=== PATIENT | female | born 1965 | race Caucasian/White ===

== ENCOUNTER 2016-10-29 13:07 | Emergency (ER) | payer BC ==
[2016-10-29 13:40] VITALS: TEMP 98.8; BMI 21.2
[2016-10-29 14:18] LABS: PH,URINE 6.5 (4.5-8); URINE APPEARANCE Clear; URINE BILIRUBIN Negative (NEGATIVE); URINE GLUCOSE (UA) Negative (NEGATIVE); URINE KETONE Negative (NEGATIVE); URINE LEUK ESTERASE Negative (NEGATIVE); URINE NITRITE Negative (NEGATIVE); URINE PROTEIN Negative (NEGATIVE); URINE UROBILINOGEN 0.2 (0.2-1.0)
[2016-10-29 14:20] LABS: URINE BACTERIA FEW /hpf (NEGATIVE); URINE BLOOD Trace-lysed (NEGATIVE); URINE COLOR YELLOW; URINE RBC 0-3 /hpf (0-3); URINE WBC 0-3 (3-5)
--- NOTE | 2016-10-29 14:21 | PDOC ---
History of Present Illness - General Chief Complaint: Pain Stated Complaint: ABDOMINAL PAIN Time Seen by Provider: 10/29/16 13:09 - History of Present Illness Initial Comments: 10/29/16 18:14 Chief complaint: Abdominal pain History of present illness: Mid abdominal pain for several days, appears to be worse today. Mild nausea, anorexia, no vomiting or diarrhea. Normal bowel movement today Review of systems: No recent hematemesis, melena, bloody stool. No dysuria or other urinary tract symptoms. No vaginal bleeding or discharge. No fever/chills , URI symptoms, sore throat, cough, chest pain, shortness of breath, visual or focal neurologic symptoms. No lightheadedness or dizziness. She does admit chronic anxiety which has worsened recently. Past medical history: Reviewed and noncontributory to this illness Social/family history reviewed and noncontributory Physical exam: Alert and oriented well-developed well-nourished no acute distress cheerful and cooperative. The patient does not appear to be ill or in any significant pain Afebrile, vital signs normal No pallor or icterus. PERRLA, ENT clear, but mucous membranes are present Neck supple without bruit mass or nodes Lungs clear with full breath sounds bilaterally CV regular without murmur rub or gallop Abdomen nondistended. Bowel sounds are normal. There is tenderness to deep palpation in the periumbilical area, no guarding or rebound. No CVAT Extremities no CCE Skin clear, no rash, adequate turgor Impression: Suggestive of irritable bowel and/or anxiety reaction. Plan: Urinalysis clear. test negative. CBC and chemistries without significant abnormalities. CAT scan pending. Past History - Past Medical History Allergies/Adverse Reactions: Allergies Allergy/AdvReac Type Severity Reaction Status Date / Time moxifloxacin HCl AdvReac Intermediate stomach Verified 10/29/16 13:09 [From Avelox] upset Home Medications: Ambulatory Orders Alprazolam [Xanax] 0.5 tab PO PRN PRN 10/29/16 Ranitidine HCl [Zantac] 150 mg PO BID 10/29/16 Sucralfate [Carafate] 1 gm PO TID 10/29/16 GI Disorders: Yes (GERD) Psychiatric Problems: Yes (ANXIETY) Other medical history: HERNIATED DISC NECK AND BACK - Psycho/Social/Smoking Cessation Hx Anxiety: Yes Suicidal Ideation: No Smoking History: Never smoked Hx Alcohol Use: No Drug/Substance Use Hx: No Substance Use Type: None *Physical Exam - Vital Signs Last Vital Signs Temp Pulse Resp BP Pulse Ox 98.8 F 83 18 138/98 100 10/29/16 13:08 10/29/16 13:08 10/29/16 13:08 10/29/16 13:08 10/29/16 13:08 ED Treatment Course - LABORATORY CBC & Chemistry Diagram: 10/29/16 14:35 10/29/16 14:35 *DC/Admit/Observation/Transfer - Discharge Dispostion Condition at time of disposition: Stable
[2016-10-29 15:13] LABS: ALBUMIN 4.5 g/dl (3.5-5.0); ALK PHOS 62 U/L (32-92); ANION GAP 8 (8-16); BASOPHIL 1.8 % (0-2.0); CALCIUM 9.9 mg/dl (8.4-10.2); CO2 27 mmol/L (22-28); CREATININE 0.5 mg/dl (0.6-1.3); EOSINOPHIL 0.6 % (0-4.5); GLUCOSE,RANDOM 99 mg/dl (74-106); MCH 30.3 pg (25.7-33.7); MCHC 32.9 g/dl (32.0-36.0); MEAN CELL VOLUME 92.2 fl (80-96); MEAN PLT VOLUME 8.2 fl (7.5-11.1); PLATELET COUNT 507 K/MM3 (134-434); RDW 12.5 % (11.6-15.6); SGOT/AST 13 U/L (10-42); TOT PROT 7.2 g/dl (6.4-8.3); WHITE BLOOD COUNT 6.7 K/mm3 (4.0-10.8)
[2016-10-29 15:28] LABS: SGPT/ALT 10 U/L (10-40)
--- NOTE | 2016-10-29 19:17 | PDOC ---
*Physical Exam - Vital Signs Last Vital Signs Temp Pulse Resp BP Pulse Ox 98.8 F 83 18 138/98 100 10/29/16 13:08 10/29/16 13:08 10/29/16 13:08 10/29/16 13:08 10/29/16 13:08 ED Treatment Course - LABORATORY CBC & Chemistry Diagram: 10/29/16 14:35 10/29/16 14:35 - ADDITIONAL ORDERS Additional order review: Laboratory Results 10/29/16 10/29/16 10/29/16 14:35 14:07 13:42 Sodium 138 Potassium 3.7 Chloride 103 Carbon Dioxide 27 Anion Gap 8 BUN 12 Creatinine 0.5 L Creat Clearance w eGFR > 60 Random Glucose 99 Calcium 9.9 Total Bilirubin 2.0 H AST 13 ALT 10 Alkaline Phosphatase 62 Total Protein 7.2 Albumin 4.5 Urine Color Yellow Urine Appearance Clear Urine pH 6.5 Ur Specific [place] <= 1.005 Urine Protein Negative Urine Glucose (UA) Negative Urine Ketones Negative Urine Blood Trace-lysed H Urine Nitrite Negative Urine Bilirubin Negative Urine Urobilinogen 0.2 Ur Leukocyte Esterase Negative Urine RBC 0-3 Urine WBC 0-3 Ur Epithelial Cells Few Urine Bacteria Few Urine HCG, Qual Negative 10/29/16 14:35 RBC 4.51 MCV 92.2 MCHC 32.9 RDW 12.5 MPV 8.2 Neutrophils % 68.0 Lymphocytes % 21.9 Monocytes % 7.7 Eosinophils % 0.6 Basophils % 1.8 Progress Note - Progress Note Progress Note: Care of this patient was transferred to pa from Dr. Milan at 1900 hrs. Patient has had the months of chronic nonspecific abdominal pain. Patient comes in today complaining of several weeks of periumbilical pain. Patient had a workup that included labs and a CAT scan of her abdomen. Patient's labs are unremarkable with no acute abnormal findings. Patient has normal white count result left shift and her chemistries are unremarkable. Patient's CAT scan shows no acute intra-abdominal pathology. Discussed with patient the results of her lab work as well as CAT scan and recommended that she continue to pursue the cause of her fatigue and abdominal discomfort with her primary care doctor or a GI doctor. Patient discharged home. *DC/Admit/Observation/Transfer Diagnosis at time of Disposition: Abdominal pain Qualifiers: Abdominal location: periumbilical Qualified Code(s): R10.33 - Periumbilical pain - Discharge Dispostion Disposition: HOME Condition at time of disposition: Stable Admit: No - Patient Instructions Additional Instructions: There is no acute medical cause found for your abdominal discomfort. Your lab work was normal as well as your CAT scan. If you continue to have abdominal discomfort is important that you follow-up with your doctor and also consider following up with a GI doctor. Return to the emergency department immediately with ANY new, persistent or worsening symptoms. Continue any medications as previously prescribed by your physician. You should follow up with your primary doctor as soon as possible regarding today's emergency department visit. . Please make sure your doctor reviews the results of your emergency evaluation. Thank you for coming to the Emergency Department today for your care. It was a pleasure to see you today. Please note that your evaluation is INCOMPLETE until you follow-up with your doctor.
[2016-10-29 19:36] VITALS: BP 128/76; PULSE 68
== END 2016-10-29 19:36 | disposition home or self-care (01) ==
LOC: FER 13:07
DX: R10.33 Periumbilical pain (principal); K21.9 Gastro-esophageal reflux disease without esophagitis; F41.9 Anxiety disorder, unspecified
CPT/HCPCS: 36415; 74177-TC; 80053; 81003; 81015; 84703; 85025; 87086; 99282-25